=== PATIENT | female | born 1940 | race African-American/Black ===

== ENCOUNTER → 2017-08-31 | Outpatient (CLI) | payer MEDICARE | LOC: BICRAD 15:19 | PROVIDERS: ATTEND Internal Medicine | DX: R05 Cough (principal) | CPT/HCPCS: 71046 ==

== ENCOUNTER 2018-06-15 13:38 | Outpatient (CLI) | payer MEDICARE | END 2018-06-15 13:39 | disposition home or self-care (01) | LOC: BICMAMMO 13:38 | PROVIDERS: ATTEND Internal Medicine | DX: Z12.31 Encounter for screening mammogram for malignant neoplasm of breast (principal) | CPT/HCPCS: 77063; 77067 ==

== ENCOUNTER 2018-06-21 13:02 | Outpatient (CLI) | payer MEDICARE ==
--- NOTE | 2018-06-21 16:34 | ULT ---
RENAL ULTRASOUND: Date: 06-21-18 Comparison: 05-12-16 History: Angiomyolipoma, renal cysts. Technique: Multiplanar grayscale sonographic imaging of the kidneys and urinary bladder obtained. FINDINGS: Right kidney measures 11.2 x 4.1 x 4.6 cm. Left kidney measures 9.2 x 4.6 x 4.5 cm. There are two hypoechoic lesions in the lower pole of the right kidney suggesting cysts measuring 1.2 and 1.1 cm respectively. No solid renal mass, hydronephrosis, or stone is apparent on the right. Doris ging of the urinary bladder appears grossly unremarkable. There is a probable small cyst associated with the posterior aspect of the midpole of the right kidne y measuring in the 7-[address] examination performed 05-10-17 demonstrated a fat containing lesion posterior to the midpole left kidney, not appreciated on this examination, likely secondary to technique. This finding would b e best assessed via follow up CT exam. IMPRESSION: Small bilateral renal cysts. Please see above discussion. POS: PADMINI
== END 2018-06-21 13:03 | disposition home or self-care (01) ==
LOC: BICULT 13:02
PROVIDERS: ATTEND Urology
DX: D17.71 Benign lipomatous neoplasm of kidney (principal); Q61.3 Polycystic kidney, unspecified; N28.1 Cyst of kidney, acquired; N28.9 Disorder of kidney and ureter, unspecified
CPT/HCPCS: 36415; 76770; 80048; 81003; 87086

== ENCOUNTER 2019-06-17 15:16 | Outpatient (CLI) | payer MEDICARE ==
--- NOTE | 2019-06-17 15:39 | MMO ---
Bilateral MAMMO Bilat Screen [facility]. CLINICAL HISTORY: Patient is 79 years old and is seen for screening. The patient has no family history of breast cancer. The patient has no personal history of cancer. VIEWS: The views performed were: bilateral craniocaudal with tomosynthesis and bilateral mediolateral oblique with tomosynthesis. FILMS COMPARED: The present examination has been compared to prior imaging studies performed at [facility] on 04/24/2015, 04/26/2016, 06/12/2017 and 06/15/2018. This study has been interpreted with the assistance of computer-aided detection. MAMMOGRAM FINDINGS: There are scattered fibroglandular densities. There are stable benign appearing calcifications seen in both breasts. There are no suspicious masses, suspicious calcifications, or new areas of architectural distortion. IMPRESSION: THERE IS NO MAMMOGRAPHIC EVIDENCE OF MALIGNANCY. A ROUTINE FOLLOW-UP MAMMOGRAM IN 1 YEAR IS RECOMMENDED. THE RESULTS OF THIS EXAM WERE SENT TO THE PATIENT. ACR BI-RADS Category 2 - Benign finding MAMMOGRAPHY NOTE: 1. A negative mammogram report should not delay a biopsy if a dominant of clinically suspicious mass is present. 2. Approximately 10% to 15% of breast cancers are not detected by mammography. 3. Adenosis and dense breasts may obscure an underlying neoplasm. Reported by: KALPESH HAGAN MD Electonically Signed: [id number]
== END 2019-06-17 15:17 | disposition home or self-care (01) ==
LOC: BICMAMMO 15:16
PROVIDERS: ATTEND Internal Medicine
DX: Z12.31 Encounter for screening mammogram for malignant neoplasm of breast (principal)
CPT/HCPCS: 77063; 77067

== ENCOUNTER 2019-08-05 14:21 | Emergency (ER) | payer MEDICARE ==
[2019-08-05 15:44] LABS: Anion Gap 12 mmol/L (10-20); BUN (Urea Nitrogen) 15 mg/dL (9.8-20.1); Calc. Creatinine Clearance 0 mL/min (70-130); Calcium 10.4 mg/dL (7.8-10.44); Carbon Dioxide 29 mmol/L (23-31); Chloride 102 mmol/L (98-107); Estimated GFR-MDRD 42; Glucose 117 mg/dL (83-110); Sodium 139 mmol/L (136-145)
[2019-08-05 16:06] LABS: Eosinophils 8 % (0-10); Hemoglobin 12.5 g/dL (12.0-16.0); Lymphocytes 31 % (21-51); MDiff Complete? YES; Mean Corpuscular HGB CONC 33.7 g/dL (32.0-36.0); Mean Platelet Volume 7.4 fL (7.4-10.4); Monocytes 10 % (0-10); Neutrophil 47 % (42-75); Platelet Count 228 thou/uL (130-400); Platelet Morphology Comment Appears Adequate; Polychromasia SLIGHT = 2-3 cells (100X) (0-2/hpf); Reactive Lymphocytes 3 % (0-10); Red Blood Cell (RBC) Count 4.15 mill/uL (4.20-5.40); White Blood Cell (WBC) Count 7.6 thou/uL (4.8-10.8)
--- NOTE | 2019-08-17 16:10 | EKG ---
Test Reason : Blood Pressure : / mmHG Vent. Rate : 064 BPM Atrial Rate : 064 BPM P-R Int : 156 ms QRS Dur : 092 ms QT Int : 412 ms P-R-T Axes : 057 050 068 degrees QTc Int : 425 ms Normal sinus rhythm Left atrial enlargement Borderline ECG Confirmed by ILIANA OLIVAS, BERNARDO Harkins ([id number]), greeting card editor TONY VOSS ([id number]) on 08/17/2019 4:10:00 PM Referred By: Confirmed By:BERNARDO BARRIENTOS MD
== END 2019-08-05 16:29 | disposition home or self-care (01) ==
LOC: ERS 14:21
DX: T50.3X1A Poisoning by electrolytic, caloric and water-balance agents, accidental (unintentional), initial encounter (principal); I25.10 Atherosclerotic heart disease of native coronary artery without angina pectoris; M19.90 Unspecified osteoarthritis, unspecified site; J44.9 Chronic obstructive pulmonary disease, unspecified; E11.9 Type 2 diabetes mellitus without complications; E78.5 Hyperlipidemia, unspecified; E78.00 Pure hypercholesterolemia, unspecified; F17.210 Nicotine dependence, cigarettes, uncomplicated; I10 Essential (primary) hypertension
CPT/HCPCS: 36415; 80048; 85025; 93005

== ENCOUNTER 2020-02-19 13:34 | Outpatient (CLI) | payer MEDICARE ==
--- NOTE | 2020-02-19 14:07 | RAD ---
XR Chest Pa Lat STANDARD HISTORY: Dyspnea COMPARISON: 01/14/2016, 08/31/2017 FINDINGS: The heart size is normal. The lungs are well expanded without focal areas of consolidation, pneumothorax or pleural effusions. The small nodule in the right lower lung likely granuloma is stable. IMPRESSION: No radiographic evidence of acute cardiopulmonary process.
== END 2020-02-19 13:35 | disposition home or self-care (01) ==
LOC: BICRAD 13:34
PROVIDERS: ATTEND Internal Medicine Pulmonary Disease
DX: R06.00 Dyspnea, unspecified (principal)
CPT/HCPCS: 71046

== ENCOUNTER 2020-03-27 10:31 | Outpatient (CLI) | payer MEDICARE ==
[2020-03-27] MEDS ORDERED: Magnevist 469MG/ML 20 ML VIAL ONE (11:44)
--- NOTE | 2020-03-27 12:37 | MRI ---
MRI BRAIN WITH AND WITHOUT IV CONTRAST: Date: 03/27/2020 HISTORY: Tic disorder. Complains of involuntary mouth noises for 5-6 months. FINDINGS: No restricted diffusion is seen. There are foci of T2 prolongation in the periventricular white matte r consistent with mild chronic small vessel ischemic disease. The ventricular size is appropriate and the basilar cisterns are patent. No evidence of infarct, hemorrhage, mass, midline shift, or abnorma l extra-axial fluid collections are seen. No abnormal postcontrast enhancement is noted. The visualiz ed paranasal sinuses and mastoid air cells are well aerated. IMPRESSION: No evidence of acute intracranial process or mass. POS: MZA
== END 2020-03-27 10:32 | disposition home or self-care (01) ==
LOC: BICMRI 10:31
PROVIDERS: ATTEND Psychiatry & Neurology Neurology
DX: F95.9 Tic disorder, unspecified (principal)
CPT/HCPCS: 70553; 82565

== ENCOUNTER 2020-06-23 11:59 | Outpatient (CLI) | payer MEDICARE ==
--- NOTE | 2020-06-23 15:10 | MMO ---
Bilateral MAMMO Bilat Screen [facility]. CLINICAL HISTORY: Patient is 80 years old and is seen for screening. The patient has no family history of breast cancer. The patient has no personal history of cancer. VIEWS: The views performed were: bilateral craniocaudal with tomosynthesis and bilateral mediolateral oblique with tomosynthesis. FILMS COMPARED: The present examination has been compared to prior imaging studies performed at [facility] on 04/26/2016, 06/12/2017, 06/15/2018 and 06/17/2019. This study has been interpreted with the assistance of computer-aided detection. MAMMOGRAM FINDINGS: There are scattered fibroglandular densities. There are stable nodules seen in the sub-areolar region of both breasts. There are no suspicious masses, suspicious calcifications, or new areas of architectural distortion. IMPRESSION: THERE IS NO MAMMOGRAPHIC EVIDENCE OF MALIGNANCY. A ROUTINE FOLLOW-UP MAMMOGRAM IN 1 YEAR IS RECOMMENDED. THE RESULTS OF THIS EXAM WERE SENT TO THE PATIENT. ACR BI-RADS Category 2 - Benign finding MAMMOGRAPHY NOTE: 1. A negative mammogram report should not delay a biopsy if a dominant of clinically suspicious mass is present. 2. Approximately 10% to 15% of breast cancers are not detected by mammography. 3. Adenosis and dense breasts may obscure an underlying neoplasm. Reported by: APRYL ROMO MD Electonically Signed: [id number]
== END 2020-06-23 12:00 | disposition home or self-care (01) ==
LOC: BICMAMMO 11:59
PROVIDERS: ATTEND Internal Medicine
DX: Z12.31 Encounter for screening mammogram for malignant neoplasm of breast (principal)
CPT/HCPCS: 77063; 77067

== ENCOUNTER 2021-07-16 12:43 | Outpatient (CLI) | payer MEDICARE | END 2021-07-16 12:44 | disposition home or self-care (01) | LOC: BICMAMMO 12:43 | PROVIDERS: ATTEND Internal Medicine | DX: Z12.31 Encounter for screening mammogram for malignant neoplasm of breast (principal) | CPT/HCPCS: 77063; 77067 ==

== ENCOUNTER 2021-09-28 08:35 | Inpatient (IN) | payer MEDICARE, OTHER ==
[2021-09-28] MEDS ORDERED: Azithromycin 500 MG VIAL ONE (09:09)
[2021-09-28] MEDS ORDERED: cefTRIAXone\\ROCEPHIN 2 GM VIAL ONE (09:09)
[2021-09-28 09:10] LABS: #Eosinphils 0.1 thou/uL (0.0-0.7); #Lymphocytes 1.2 thou/uL (1.20-3.40); #Monocytes 0.9 thou/uL (0.11-0.59); #Neutrophils 8.3 thou/uL (1.40-6.50); %Basophils 0.2 % (0.0-1.0); %Eosinophils 0.5 % (0.0-10.0); %Lymphocytes 11.5 % (21.0-51.0); %Monocytes 8.6 % (0.0-10.0); %Neutrophils 79.2 % (42.0-75.0); Mean Corpuscular Hemoglobin 27.9 pg (27.0-31.0); Mean Corpuscular Volume 87.3 fL (78.0-98.0); Mean Platelet Volume 7.2 fL (7.4-10.4); Platelet Count 230 thou/uL (130-400); Red Blood Cell (RBC) Count 3.95 mill/uL (4.20-5.40); White Blood Cell (WBC) Count 10.5 thou/uL (4.8-10.8)
[2021-09-28 09:20] LABS: INR-International Normal Ratio 1.1; PTT 38.5 sec (22.9-36.1); Prothrombin Time 14.1 sec (12.0-14.7)
[2021-09-28 09:24] LABS: ALT (SGPT) 23 U/L (8-55); AST (SGOT) 29 U/L (5-34); Alkaline Phosphatase 94 U/L (40-110); Anion Gap 13 mmol/L (10-20); BUN (Urea Nitrogen) 23 mg/dL (9.8-20.1); Bilirubin, Total 0.3 mg/dL (0.2-1.2); Calc. Creatinine Clearance 0 mL/min (70-130); Calcium 9.4 mg/dL (7.8-10.44); Carbon Dioxide 26 mmol/L (23-31); Chloride 102 mmol/L (98-107); Globulin 3.7 g/dL (2.4-3.5); Glucose 160 mg/dL (83-110); Potassium 4.4 mmol/L (3.5-5.1); Protein, Total 7.7 g/dL (5.8-8.1); Sodium 137 mmol/L (136-145)
[2021-09-28] MEDS ORDERED: Magnesium 2 GM/50 ML BAG (IN WATER) ONE (10:46)
[2021-09-28] MEDS ORDERED: predniSONE 20 MG TAB ONE (10:47)
[2021-09-28] MEDS ORDERED: Albuterol 200 PUFF (6.7GM INHALER) ONE (10:54)
[2021-09-28 11:49] LABS: SARS-CoV-2 NAA Rapid Test Not Detected (NotDetected)
[2021-09-28 11:59] LABS: Bacteria/HPF 4+ HPF (None Seen); Bilirubin Negative (Negative); Blood, Urine Trace (Negative); Clarity Clear (Clear); Glucose, Urine (Dipstick) Normal (Negative); Ketone, Urine Negative (Negative); Leukocyte Negative Leu/uL (Negative); Nitrite Negative (Negative); Protein, Urine (Dipstick) 70 mg/dL (Neg-Trace); RBC/HPF 0-3 HPF (0-3); Specific Gravity, Urine 1.019 (1.002-1.036); Urobilinogen Normal mg/dL (Less than 2); WBC/HPF 0-3 HPF (0-3)
[2021-09-28] MEDS ORDERED: Oseltamivir 75 MG CAP PO SCH ×2 (13:30→21:00)
[2021-09-28] MEDS ORDERED: Dextrose 5% in Water 1,000 ML IV PRN (14:05)
[2021-09-28] MEDS ORDERED: Dextrose 50% Abboject 50 ML SYRINGE SLOW IVP PRN (14:05)
[2021-09-28] MEDS ORDERED: Nicotine 14 MG PATCH TD PRN (14:06)
[2021-09-28] MEDS ORDERED: Guaifenesin DM 100-10/5 ML UDCUP PO PRN (14:06)
[2021-09-28] MEDS ORDERED: Ondansetron ODT 4 MG TAB PO PRN (14:06)
[2021-09-28] MEDS ORDERED: Acetaminophen 325 MG TAB PO PRN (14:06)
[2021-09-28] MEDS ORDERED: Docusate 100 MG CAP PO PRN (14:08)
[2021-09-28] MEDS ORDERED: hydrALAZINE 20 MG/ML VIAL SLOW IVP PRN (14:08)
[2021-09-28] MEDS ORDERED: traMADol HCl 50 MG TAB PO PRN (14:15)
[2021-09-28] MEDS ORDERED: Electrolyte Replacement Protocol 1 EACH FS SCH (14:15)
[2021-09-28] MEDS ORDERED: Electrolyte Replacement Protocol FS PRN (14:45)
[2021-09-28] MEDS ORDERED: Albuterol Sulfate 2.5 mg/3 ml Neb NEB PRN (14:51)
[2021-09-28] MEDS ORDERED: cloNIDine 0.1mg/24 Hour PATCH TD SCH (15:15)
[2021-09-28] MEDS: Gabapentin 300 MG CAP PO SCH ×2 (17:01→20:57)
[2021-09-28] MEDS: Heparin 5,000 UNITS/ML VIAL SC SCH ×2 (17:02→20:58)
[2021-09-28 17:11] VITALS: BMI 37.0
[2021-09-28] MEDS ORDERED: Atorvastatin Calcium 40 MG TAB PO SCH (21:00)
[2021-09-29 06:46] LABS: #Lymphocytes 1.9 thou/uL (1.20-3.40); #Monocytes 1.3 thou/uL (0.11-0.59); #Neutrophils 7.6 thou/uL (1.40-6.50); %Basophils 0.1 % (0.0-1.0); %Eosinophils 0.1 % (0.0-10.0); %Lymphocytes 17.9 % (21.0-51.0); %Monocytes 11.6 % (0.0-10.0); %Neutrophils 70.3 % (42.0-75.0); Mean Corpuscular HGB CONC 32.5 g/dL (32.0-36.0); Mean Corpuscular Hemoglobin 28.2 pg (27.0-31.0); Mean Corpuscular Volume 86.6 fL (78.0-98.0); Mean Platelet Volume 7.2 fL (7.4-10.4); Platelet Count 205 thou/uL (130-400); RBC Distribution Width 12.9 % (11.5-14.5); Red Blood Cell (RBC) Count 3.53 mill/uL (4.20-5.40); White Blood Cell (WBC) Count 10.8 thou/uL (4.8-10.8)
[2021-09-29 07:04] LABS: Anion Gap 15 mmol/L (10-20); BUN (Urea Nitrogen) 31 mg/dL (9.8-20.1); Calc. Creatinine Clearance 36 mL/min (70-130); Calcium 8.7 mg/dL (7.8-10.44); Carbon Dioxide 21 mmol/L (23-31); Chloride 103 mmol/L (98-107); Glucose 161 mg/dL (83-110); Magnesium 2.3 mg/dL (1.6-2.6); Potassium 4.2 mmol/L (3.5-5.1); Sodium 135 mmol/L (136-145)
[2021-09-29] MEDS ORDERED: predniSONE 20 MG TAB PO SCH (08:00)
[2021-09-29] MEDS ORDERED: Potassium Chloride 20 MEQ TAB PO SCH (08:00)
[2021-09-29] MEDS: Heparin 5,000 UNITS/ML VIAL SC SCH ×2 (08:17→16:18)
[2021-09-29] MEDS: Gabapentin 300 MG CAP PO SCH ×2 (08:17→16:17)
[2021-09-29] MEDS ORDERED: Furosemide 20 MG TAB PO SCH (09:00)
[2021-09-29] MEDS ORDERED: hydrOXYzine 25 MG TAB PO SCH (09:00)
[2021-09-29] MEDS ORDERED: cefTRIAXone\\ROCEPHIN 1 GM in Sodium Chloride 0.9% 100 ML IVPB SCH (10:00)
[2021-09-29] MEDS ORDERED: Azithromycin 500 MG in Sodium Chloride 0.9% 250 ML 250 ML IVPB SCH (12:00)
[2021-09-29 17:33] VITALS: BP 181/69; TEMP 97.8
[2021-09-29] MEDS ORDERED: Oseltamivir 6 MG/ML ORAL SUSP PO SCH (21:00)
[2021-10-05] MEDS ORDERED: cloNIDine 0.1mg/24 Hour PATCH TD SCH (09:00)
== END 2021-09-29 17:29 | disposition home or self-care (01) | DRG 871 ==
LOC: ERS 08:35 → ERHOLD 10:58 → T4-B 15:44
PROVIDERS: ADMIT Internal Medicine; ATTEND Internal Medicine
DX: A41.89 Other specified sepsis (principal); J96.21 Acute and chronic respiratory failure with hypoxia; J44.1 Chronic obstructive pulmonary disease with (acute) exacerbation; N17.9 Acute kidney failure, unspecified; J10.1 Influenza due to other identified influenza virus with other respiratory manifestations; Z20.822 Contact with and (suspected) exposure to COVID-19; M19.90 Unspecified osteoarthritis, unspecified site; I25.10 Atherosclerotic heart disease of native coronary artery without angina pectoris; I10 Essential (primary) hypertension; E78.5 Hyperlipidemia, unspecified; E11.9 Type 2 diabetes mellitus without complications; F17.210 Nicotine dependence, cigarettes, uncomplicated; Z96.41 Presence of insulin pump (external) (internal); Z96.641 Presence of right artificial hip joint; F41.9 Anxiety disorder, unspecified; F41.1 Generalized anxiety disorder; Z95.5 Presence of coronary angioplasty implant and graft; Z90.710 Acquired absence of both cervix and uterus; Z90.49 Acquired absence of other specified parts of digestive tract; Z83.3 Family history of diabetes mellitus; Z82.49 Family history of ischemic heart disease and other diseases of the circulatory system; Z79.4 Long term (current) use of insulin; Z88.8 Allergy status to other drugs, medicaments and biological substances
CPT/HCPCS: 0240U; 36415; 71045; 80048; 80053; 81003; 81015; 83605; 83735; 85025; 85610; 85730; 87040; 87086; 93005; 94664; 94760; J0456; J0696; J1644; J3475; J3490; J7050; J7512

== ENCOUNTER 2022-07-29 07:55 | Outpatient (CLI) | payer MEDICARE, OTHER | END 2022-07-29 07:56 | disposition home or self-care (01) | LOC: BICMAMMO 07:55 | PROVIDERS: ATTEND Internal Medicine | DX: Z12.31 Encounter for screening mammogram for malignant neoplasm of breast (principal) | CPT/HCPCS: 77063; 77067 ==

== ENCOUNTER 2022-11-01 09:05 | Outpatient (CLI) | payer OTHER | END 2022-11-01 09:06 | disposition home or self-care (01) | LOC: BICCT 09:05 | PROVIDERS: ATTEND Internal Medicine | DX: M53.3 Sacrococcygeal disorders, not elsewhere classified (principal); R10.32 Left lower quadrant pain; M25.559 Pain in unspecified hip; N28.9 Disorder of kidney and ureter, unspecified | CPT/HCPCS: 72170; 72220; 74176 ==

== ENCOUNTER 2023-03-23 09:09 | Outpatient (CLI) | payer OTHER | END 2023-03-23 09:10 | disposition home or self-care (01) | LOC: CT 09:09 | PROVIDERS: ATTEND Urology | DX: N18.9 Chronic kidney disease, unspecified (principal); N28.1 Cyst of kidney, acquired; D17.71 Benign lipomatous neoplasm of kidney; Z90.5 Acquired absence of kidney | CPT/HCPCS: 82565 ==

== ENCOUNTER 2023-07-28 15:40 | Inpatient (IN) | payer MEDICARE, OTHER ==
[2023-07-28 16:31] LABS: #Eosinphils 0.1 thou/uL (0.0-0.7); #Monocytes 0.7 thou/uL (0.11-0.59); #Neutrophils 7.8 thou/uL (1.40-6.50); %Basophils 0.1 % (0.0-1.0); %Eosinophils 0.7 % (0.0-10.0); %Monocytes 7.3 % (0.0-10.0); %Neutrophils 82.4 % (42.0-75.0); Hematocrit 24.5 % (36.0-47.0); Hemoglobin 7.4 g/dL (12.0-16.0); Mean Corpuscular HGB CONC 30.2 g/dL (32.0-36.0); Mean Corpuscular Hemoglobin 28.4 pg (27.0-31.0); Mean Corpuscular Volume 93.9 fl (78.0-98.0); Mean Platelet Volume 10.9 fL (7.4-10.4); Platelet Count 264 10x3/uL (130-400); RBC Distribution Width 16.9 % (11.5-14.5); Red Blood Cell (RBC) Count 2.61 mill/uL (4.20-5.40); White Blood Cell (WBC) Count 9.4 10x3/uL (4.8-10.8)
[2023-07-28] MEDS ORDERED: Furosemide 20 MG/2 ML VIAL ONE (16:44)
[2023-07-28] MEDS ORDERED: Ipratropium/Albuterol 3 ML NEB ONE (16:51)
[2023-07-28 16:55] LABS: ALT (SGPT) 14 U/L (8-55); AST (SGOT) 20 U/L (5-34); Alkaline Phosphatase 117 U/L (40-110); Anion Gap 16 mmol/L (10-20); BUN (Urea Nitrogen) 33 mg/dL (9.8-20.1); Bilirubin, Total 0.4 mg/dL (0.2-1.2); Calc. Creatinine Clearance 0 mL/min (70-130); Carbon Dioxide 24 mmol/L (23-31); Chloride 106 mmol/L (98-107); Estimated GFR 22; Globulin 2.8 g/dL (2.4-3.5); Glucose 337 mg/dL (83-110); Magnesium 1.8 mg/dL (1.6-2.6); Potassium 3.8 mmol/L (3.5-5.1); Protein, Total 6.8 g/dL (5.8-8.1); Sodium 142 mmol/L (136-145)
[2023-07-28] MEDS ORDERED: Dextrose 5% in Water 1,000 ML IV PRN (18:53)
[2023-07-28] MEDS ORDERED: Ondansetron PF 4 MG/2 ML Vial IVP PRN (18:53)
[2023-07-28] MEDS ORDERED: HumaLOG 300 UNITS/3 ML VIAL SC PRN (18:53)
[2023-07-28] MEDS ORDERED: Acetaminophen 325 MG TAB PO PRN (18:53)
[2023-07-28] MEDS ORDERED: Dextrose 50% Abboject 50 ML SYRINGE SLOW IVP PRN (18:53)
[2023-07-28] MEDS ORDERED: Glucagon 1 MG/ML KIT IM PRN (18:53)
[2023-07-28 20:17] LABS: Troponin I 0.044 ng/mL (< 0.028)
[2023-07-28 21:51] VITALS: BMI 41.5
[2023-07-28] MEDS ORDERED: hydrALAZINE 20 MG/ML VIAL SLOW IVP PRN (22:12)
[2023-07-28] MEDS ORDERED: Furosemide 20 MG/2 ML VIAL SLOW IVP SCH (22:15)
[2023-07-28] MEDS: hydrALAZINE 25 MG TAB PO SCH (22:24)
[2023-07-28] MEDS: Benzonatate 100 MG CAP PO SCH (22:24)
[2023-07-28] MEDS: Pregabalin 75 MG CAP PO SCH (22:24)
[2023-07-28] MEDS: cloNIDine 0.1 MG TAB PO SCH (22:25)
[2023-07-28] MEDS: QUEtiapine 25 MG TAB PO SCH (22:25)
[2023-07-28] MEDS: Heparin 5,000 UNITS/ML VIAL SC SCH (22:25)
[2023-07-29 02:15] LABS: Troponin I 0.048 ng/mL (< 0.028)
[2023-07-29 04:17] LABS: #Eosinphils 0.2 thou/uL (0.0-0.7); #Monocytes 0.9 thou/uL (0.11-0.59); #Neutrophils 5.9 thou/uL (1.40-6.50); %Basophils 0.3 % (0.0-1.0); %Eosinophils 2.3 % (0.0-10.0); %Lymphocytes 20.1 % (21.0-51.0); %Monocytes 10.3 % (0.0-10.0); %Neutrophils 66.4 % (42.0-75.0); Hematocrit 25.8 % (36.0-47.0); Hemoglobin 7.8 g/dL (12.0-16.0); Mean Corpuscular HGB CONC 30.2 g/dL (32.0-36.0); Mean Corpuscular Hemoglobin 27.8 pg (27.0-31.0); Mean Corpuscular Volume 91.8 fl (78.0-98.0); Mean Platelet Volume 11.2 fL (7.4-10.4); Platelet Count 228 10x3/uL (130-400); RBC Distribution Width 16.6 % (11.5-14.5); Red Blood Cell (RBC) Count 2.81 mill/uL (4.20-5.40); White Blood Cell (WBC) Count 8.8 10x3/uL (4.8-10.8)
[2023-07-29 04:56] LABS: Calcium 8.6 mg/dL (7.8-10.44); Chloride 109 mmol/L (98-107); Potassium 4.1 mmol/L (3.5-5.1); Sodium 145 mmol/L (136-145)
[2023-07-29 05:07] LABS: BUN (Urea Nitrogen) 30 mg/dL (9.8-20.1); Calc. Creatinine Clearance 36 mL/min (70-130); Carbon Dioxide 29 mmol/L (23-31); Estimated GFR 26; Glucose 143 mg/dL (83-110)
[2023-07-29 05:18] LABS: Anion Gap 11 mmol/L (10-20)
[2023-07-29] MEDS ORDERED: Furosemide 40 MG/4 ML VIAL SLOW IVP SCH (06:00)
[2023-07-29 08:22] LABS: Troponin I 0.034 ng/mL (< 0.028)
[2023-07-29] MEDS: Cholecalciferol 1,000 UNITS (25 MCG) TAB PO SCH (08:31)
[2023-07-29] MEDS: Ferrous Sulfate 325 MG TAB PO SCH (08:31)
[2023-07-29] MEDS: Benzonatate 100 MG CAP PO SCH ×3 (08:31→19:27)
[2023-07-29] MEDS: busPIRone HCl 5 MG TAB PO SCH ×2 (08:31→19:28)
[2023-07-29] MEDS: dilTIAZem CD 240 MG CAP PO SCH ×2 (08:34→10:39)
[2023-07-29] MEDS: Pregabalin 75 MG CAP PO SCH ×2 (08:34→20:44)
[2023-07-29] MEDS: cloNIDine 0.1 MG TAB PO SCH ×2 (08:36→20:44)
[2023-07-29] MEDS ORDERED: dilTIAZem CD 180 MG CAP PO SCH (09:00)
[2023-07-29] MEDS ORDERED: Losartan 25 MG TAB PO SCH ×2 (09:00)
[2023-07-29] MEDS ORDERED: Hydrochlorothiazide 25 MG TAB PO SCH (09:00)
[2023-07-29] MEDS ORDERED: Albuterol 200 PUFF (6.7GM INHALER) INH SCH (09:00)
[2023-07-29] MEDS: Atorvastatin Calcium 20 MG TAB PO SCH (10:40)
[2023-07-29] MEDS: Heparin 5,000 UNITS/ML VIAL SC SCH ×3 (10:40→20:43)
[2023-07-29] MEDS: hydrALAZINE 25 MG TAB PO SCH ×4 (12:14→20:43)
[2023-07-29] MEDS: Furosemide 40 MG/4 ML VIAL SLOW IVP SCH (12:30)
[2023-07-29] MEDS: HumaLOG 300 UNITS/3 ML VIAL SC PRN ×2 (12:30→18:39)
[2023-07-29] MEDS: QUEtiapine 25 MG TAB PO SCH (20:43)
[2023-07-30 05:24] LABS: #Eosinphils 0.3 thou/uL (0.0-0.7); #Monocytes 0.7 thou/uL (0.11-0.59); #Neutrophils 4.7 thou/uL (1.40-6.50); %Basophils 0.3 % (0.0-1.0); %Eosinophils 4.1 % (0.0-10.0); %Lymphocytes 20.3 % (21.0-51.0); %Monocytes 9.9 % (0.0-10.0); Hematocrit 25.1 % (36.0-47.0); Hemoglobin 7.8 g/dL (12.0-16.0); Mean Corpuscular HGB CONC 31.1 g/dL (32.0-36.0); Mean Corpuscular Hemoglobin 28.6 pg (27.0-31.0); Mean Corpuscular Volume 91.9 fl (78.0-98.0); Mean Platelet Volume 11.5 fL (7.4-10.4); Platelet Count 208 10x3/uL (130-400); RBC Distribution Width 17.2 % (11.5-14.5); Red Blood Cell (RBC) Count 2.73 mill/uL (4.20-5.40); White Blood Cell (WBC) Count 7.2 10x3/uL (4.8-10.8)
[2023-07-30 05:55] LABS: ALT (SGPT) 14 U/L (8-55); AST (SGOT) 17 U/L (5-34); Albumin 3.2 g/dL (3.4-4.8); Alkaline Phosphatase 103 U/L (40-110); Anion Gap 15 mmol/L (10-20); BUN (Urea Nitrogen) 32 mg/dL (9.8-20.1); Bilirubin, Direct 0.2 mg/dL (0.1-0.3); Bilirubin, Total 0.4 mg/dL (0.2-1.2); Calc. Creatinine Clearance 30 mL/min (70-130); Calcium 8.7 mg/dL (7.8-10.44); Carbon Dioxide 26 mmol/L (23-31); Chloride 106 mmol/L (98-107); Estimated GFR 22; Glucose 199 mg/dL (83-110); Magnesium 2.4 mg/dL (1.6-2.6); Potassium 4.1 mmol/L (3.5-5.1); Sodium 143 mmol/L (136-145)
[2023-07-30] MEDS: Furosemide 40 MG/4 ML VIAL SLOW IVP SCH (06:05)
[2023-07-30] MEDS: HumaLOG 300 UNITS/3 ML VIAL SC PRN ×2 (06:05→18:22)
[2023-07-30] MEDS ORDERED: Ipratropium/Albuterol 3 ML NEB NEB PRN (08:28)
[2023-07-30] MEDS: Benzonatate 100 MG CAP PO SCH ×3 (09:09→21:48)
[2023-07-30] MEDS: Atorvastatin Calcium 20 MG TAB PO SCH (09:09)
[2023-07-30] MEDS: Aspirin 81 mg Enteric Coated Tablet PO SCH (09:09)
[2023-07-30] MEDS: Cholecalciferol 1,000 UNITS (25 MCG) TAB PO SCH (09:10)
[2023-07-30] MEDS: dilTIAZem CD 240 MG CAP PO SCH (09:10)
[2023-07-30] MEDS: cloNIDine 0.1 MG TAB PO SCH ×2 (09:10→21:47)
[2023-07-30] MEDS: busPIRone HCl 5 MG TAB PO SCH ×2 (09:10→21:47)
[2023-07-30] MEDS: Heparin 5,000 UNITS/ML VIAL SC SCH ×3 (09:11→21:48)
[2023-07-30] MEDS: Pregabalin 75 MG CAP PO SCH ×2 (09:11→21:47)
[2023-07-30] MEDS: hydrALAZINE 25 MG TAB PO SCH ×3 (09:11→21:48)
[2023-07-30] MEDS ORDERED: Azithromycin 250 MG TAB PO SCH (11:00)
[2023-07-30] MEDS: Ipratropium/Albuterol 3 ML NEB NEB SCH ×4 (11:01→22:02)
[2023-07-30] MEDS: cefTRIAXone\\ROCEPHIN 1 GM in Sodium Chloride 0.9% 100 ML IVPB SCH (11:48)
[2023-07-30 11:58] LABS: Legionella Urinary Ag Negative (Negative); Strep pneumo Urine Ag NEGATIVE (NEGATIVE)
[2023-07-30 20:32] LABS: SARS-CoV-2 NAA Rapid Test Not Detected (NotDetected)
[2023-07-30] MEDS: QUEtiapine 25 MG TAB PO SCH (21:48)
[2023-07-31] MEDS: Ipratropium/Albuterol 3 ML NEB NEB SCH ×6 (02:14→22:15)
[2023-07-31 04:38] LABS: #Eosinphils 0.3 thou/uL (0.0-0.7); #Monocytes 0.8 thou/uL (0.11-0.59); %Basophils 0.3 % (0.0-1.0); %Eosinophils 3.3 % (0.0-10.0); %Lymphocytes 22.2 % (21.0-51.0); %Monocytes 10.4 % (0.0-10.0); %Neutrophils 63.3 % (42.0-75.0); Actual Bicarbonate (HCO3v) 26.9 mEq/L (22-28); Calcium, Ionized (venous) 1.08 mmol/L (1.16-1.32); Chloride (VBG) 101 mmol/L (98-106); Hematocrit 25.3 % (36.0-47.0); Hematocrit-VBG 25 % (36.0-47.0); Hemoglobin 7.6 g/dL (12.0-16.0); Hemoglobin (Hb) 8.6 g/dL (11.7-16.1); Mean Corpuscular Hemoglobin 27.2 pg (27.0-31.0); Mean Corpuscular Volume 90.7 fl (78.0-98.0); Platelet Count 238 10x3/uL (130-400); Potassium (VBG) 3.71 mmol/L (3.70-5.30); RBC Distribution Width 17.1 % (11.5-14.5); Red Blood Cell (RBC) Count 2.79 mill/uL (4.20-5.40); Sodium 139 mmol/L (133-146); White Blood Cell (WBC) Count 7.9 10x3/uL (4.8-10.8); pH (venous) 7.466 (7.32-7.43)
[2023-07-31 05:06] LABS: Anion Gap 15 mmol/L (10-20); BUN (Urea Nitrogen) 37 mg/dL (9.8-20.1); Calc. Creatinine Clearance 28 mL/min (70-130); Calcium 8.9 mg/dL (7.8-10.44); Carbon Dioxide 28 mmol/L (23-31); Chloride 102 mmol/L (98-107); Estimated GFR 21; Glucose 241 mg/dL (83-110); Magnesium 2.5 mg/dL (1.6-2.6); Potassium 3.8 mmol/L (3.5-5.1); Sodium 141 mmol/L (136-145)
[2023-07-31] MEDS ORDERED: Furosemide 40 MG/4 ML VIAL SLOW IVP SCH (09:00)
[2023-07-31] MEDS ORDERED: Azithromycin 250 MG TAB PO SCH (09:00)
[2023-07-31] MEDS: cloNIDine 0.1 MG TAB PO SCH ×2 (09:40→20:28)
[2023-07-31] MEDS: busPIRone HCl 5 MG TAB PO SCH ×2 (09:40→20:26)
[2023-07-31] MEDS: Azithromycin 250 MG TAB PO SCH (09:40)
[2023-07-31] MEDS: Aspirin 81 mg Enteric Coated Tablet PO SCH (09:40)
[2023-07-31] MEDS: Benzonatate 100 MG CAP PO SCH ×3 (09:40→20:27)
[2023-07-31] MEDS: Cholecalciferol 1,000 UNITS (25 MCG) TAB PO SCH (09:40)
[2023-07-31] MEDS: Atorvastatin Calcium 20 MG TAB PO SCH (09:40)
[2023-07-31] MEDS: hydrALAZINE 25 MG TAB PO SCH ×3 (09:41→20:27)
[2023-07-31] MEDS: Ferrous Sulfate 325 MG TAB PO SCH (09:41)
[2023-07-31] MEDS: Folic Acid 1 MG TAB PO SCH (09:41)
[2023-07-31] MEDS: Heparin 5,000 UNITS/ML VIAL SC SCH ×3 (09:41→20:25)
[2023-07-31] MEDS: dilTIAZem CD 240 MG CAP PO SCH (09:41)
[2023-07-31] MEDS: Pregabalin 75 MG CAP PO SCH ×2 (09:42→20:27)
[2023-07-31] MEDS: cefTRIAXone\\ROCEPHIN 1 GM in Sodium Chloride 0.9% 100 ML IVPB SCH (11:45)
[2023-07-31] MEDS ORDERED: predniSONE 50 MG TAB PO SCH (14:45)
[2023-07-31] MEDS: HumaLOG 300 UNITS/3 ML VIAL SC PRN (17:46)
[2023-07-31] MEDS: QUEtiapine 25 MG TAB PO SCH (20:27)
[2023-07-31] MEDS ORDERED: Insulin Glargine 30 UNITS/0.3 ML VIAL SC SCH (21:00)
[2023-08-01] MEDS: Ipratropium/Albuterol 3 ML NEB NEB SCH ×6 (02:19→22:06)
[2023-08-01 04:32] LABS: #Monocytes 0.1 thou/uL (0.11-0.59); #Neutrophils 3.9 thou/uL (1.40-6.50); %Lymphocytes 10.6 % (21.0-51.0); Hematocrit 25.1 % (36.0-47.0); Hemoglobin 7.6 g/dL (12.0-16.0); Mean Corpuscular HGB CONC 30.3 g/dL (32.0-36.0); Mean Corpuscular Hemoglobin 27.7 pg (27.0-31.0); Mean Corpuscular Volume 91.6 fl (78.0-98.0); Mean Platelet Volume 11.1 fL (7.4-10.4); Platelet Count 219 10x3/uL (130-400); RBC Distribution Width 16.4 % (11.5-14.5); Red Blood Cell (RBC) Count 2.74 mill/uL (4.20-5.40); White Blood Cell (WBC) Count 4.5 10x3/uL (4.8-10.8)
[2023-08-01 04:59] LABS: Anion Gap 15 mmol/L (10-20); BUN (Urea Nitrogen) 41 mg/dL (9.8-20.1); Calc. Creatinine Clearance 31 mL/min (70-130); Calcium 9.1 mg/dL (7.8-10.44); Carbon Dioxide 25 mmol/L (23-31); Chloride 103 mmol/L (98-107); Estimated GFR 23; Magnesium 2.7 mg/dL (1.6-2.6); Potassium 4.3 mmol/L (3.5-5.1); Sodium 139 mmol/L (136-145)
[2023-08-01 05:23] LABS: Glucose 435 mg/dL (83-110)
[2023-08-01] MEDS: HumaLOG 300 UNITS/3 ML VIAL SC PRN ×3 (05:29→17:33)
[2023-08-01] MEDS ORDERED: AFRIN NASAL MIST 15 ML BOT NS PRN (08:22)
[2023-08-01] MEDS: Azithromycin 250 MG TAB PO SCH (10:01)
[2023-08-01] MEDS: Aspirin 81 mg Enteric Coated Tablet PO SCH (10:01)
[2023-08-01] MEDS: Benzonatate 100 MG CAP PO SCH ×3 (10:01→21:11)
[2023-08-01] MEDS: predniSONE 50 MG TAB PO SCH (10:01)
[2023-08-01] MEDS: Atorvastatin Calcium 20 MG TAB PO SCH (10:01)
[2023-08-01] MEDS: busPIRone HCl 5 MG TAB PO SCH ×2 (10:02→21:14)
[2023-08-01] MEDS: cloNIDine 0.1 MG TAB PO SCH ×2 (10:03→21:11)
[2023-08-01] MEDS: Cholecalciferol 1,000 UNITS (25 MCG) TAB PO SCH (10:03)
[2023-08-01] MEDS: dilTIAZem CD 240 MG CAP PO SCH (10:03)
[2023-08-01] MEDS: hydrALAZINE 25 MG TAB PO SCH ×3 (10:04→21:12)
[2023-08-01] MEDS: Heparin 5,000 UNITS/ML VIAL SC SCH (10:04)
[2023-08-01] MEDS: Insulin Glargine 30 UNITS/0.3 ML VIAL SC SCH ×2 (10:04→21:16)
[2023-08-01] MEDS: Pregabalin 75 MG CAP PO SCH ×2 (10:05→21:10)
[2023-08-01] MEDS: cefTRIAXone\\ROCEPHIN 1 GM in Sodium Chloride 0.9% 100 ML IVPB SCH (10:05)
[2023-08-01] MEDS ORDERED: Furosemide 40 MG TAB PO SCH (11:30)
[2023-08-01] MEDS: Oxymetazoline HCl 0.05% (30 ML BOT) NS PRN (14:30)
[2023-08-01] MEDS: QUEtiapine 25 MG TAB PO SCH ×2 (21:13→21:23)
[2023-08-02] MEDS: Ipratropium/Albuterol 3 ML NEB NEB SCH ×6 (02:45→21:47)
[2023-08-02 05:19] LABS: #Monocytes 1.1 thou/uL (0.11-0.59); %Lymphocytes 11.3 % (21.0-51.0); %Monocytes 10.7 % (0.0-10.0); %Neutrophils 77.5 % (42.0-75.0); Hematocrit 22.3 % (36.0-47.0); Hemoglobin 6.9 g/dL (12.0-16.0); Mean Corpuscular HGB CONC 30.9 g/dL (32.0-36.0); Mean Corpuscular Hemoglobin 28.3 pg (27.0-31.0); Mean Corpuscular Volume 91.4 fl (78.0-98.0); Mean Platelet Volume 10.9 fL (7.4-10.4); Platelet Count 203 10x3/uL (130-400); RBC Distribution Width 16.3 % (11.5-14.5); Red Blood Cell (RBC) Count 2.44 mill/uL (4.20-5.40); White Blood Cell (WBC) Count 10.3 10x3/uL (4.8-10.8)
[2023-08-02 05:50] LABS: Anion Gap 14 mmol/L (10-20); BUN (Urea Nitrogen) 52 mg/dL (9.8-20.1); Calc. Creatinine Clearance 30 mL/min (70-130); Calcium 8.8 mg/dL (7.8-10.44); Carbon Dioxide 27 mmol/L (23-31); Chloride 103 mmol/L (98-107); Estimated GFR 22; Magnesium 2.2 mg/dL (1.6-2.6); Potassium 4.2 mmol/L (3.5-5.1); Sodium 140 mmol/L (136-145)
[2023-08-02 05:55] LABS: Glucose 411 mg/dL (83-110)
[2023-08-02] MEDS ORDERED: Insulin Regular 300 UNITS/3 ML VIAL IVP SCH (07:00)
[2023-08-02] MEDS: Ferrous Sulfate 325 MG TAB PO SCH (08:49)
[2023-08-02] MEDS: hydrALAZINE 25 MG TAB PO SCH ×3 (08:49→21:57)
[2023-08-02] MEDS: Azithromycin 250 MG TAB PO SCH (08:50)
[2023-08-02] MEDS: Furosemide 20 MG TAB PO SCH (08:51)
[2023-08-02] MEDS: Atorvastatin Calcium 20 MG TAB PO SCH (08:51)
[2023-08-02] MEDS: Pregabalin 75 MG CAP PO SCH ×2 (08:52→21:57)
[2023-08-02] MEDS: Benzonatate 100 MG CAP PO SCH ×3 (08:52→21:58)
[2023-08-02] MEDS: Cholecalciferol 1,000 UNITS (25 MCG) TAB PO SCH (08:52)
[2023-08-02] MEDS: Folic Acid 1 MG TAB PO SCH (08:52)
[2023-08-02] MEDS: dilTIAZem CD 240 MG CAP PO SCH (08:52)
[2023-08-02] MEDS: busPIRone HCl 5 MG TAB PO SCH ×2 (08:53→21:58)
[2023-08-02] MEDS: Aspirin 81 mg Enteric Coated Tablet PO SCH (08:53)
[2023-08-02] MEDS: Insulin Glargine 30 UNITS/0.3 ML VIAL SC SCH ×2 (08:55→21:56)
[2023-08-02] MEDS: cloNIDine 0.1 MG TAB PO SCH ×2 (08:55→21:58)
[2023-08-02] MEDS ORDERED: Epoetin (ESRD) 20,000 UNITS/ML MDV SC SCH (09:15)
[2023-08-02] MEDS ORDERED: Furosemide 40 MG/4 ML VIAL SLOW IVP SCH (09:15)
[2023-08-02] MEDS: predniSONE 50 MG TAB PO SCH (09:26)
[2023-08-02] MEDS: cefTRIAXone\\ROCEPHIN 1 GM in Sodium Chloride 0.9% 100 ML IVPB SCH (11:17)
[2023-08-02] MEDS ORDERED: EPOETIN ALFA-EPBX (ESRD) 10,000 UNITS/ML VIAL SC SCH (12:00)
[2023-08-02] MEDS: Oxymetazoline HCl 0.05% (30 ML BOT) NS PRN (14:35)
[2023-08-02 20:37] LABS: Mycoplasma pneumoniae IgG AB 253 U/mL (0-99); Mycoplasma pneumoniae IgM AB Less than 770 U/mL (0-769)
[2023-08-02] MEDS: QUEtiapine 25 MG TAB PO SCH (21:58)
[2023-08-03] MEDS: Ipratropium/Albuterol 3 ML NEB NEB SCH ×4 (02:26→19:30)
[2023-08-03 05:10] LABS: #Eosinphils 0.1 thou/uL (0.0-0.7); #Monocytes 0.9 thou/uL (0.11-0.59); #Neutrophils 5.8 thou/uL (1.40-6.50); %Basophils 0.1 % (0.0-1.0); %Eosinophils 1.1 % (0.0-10.0); %Monocytes 9.5 % (0.0-10.0); %Neutrophils 64.6 % (42.0-75.0); Hematocrit 25.9 % (36.0-47.0); Hemoglobin 8.1 g/dL (12.0-16.0); Mean Corpuscular HGB CONC 31.3 g/dL (32.0-36.0); Mean Corpuscular Hemoglobin 28.1 pg (27.0-31.0); Mean Corpuscular Volume 89.9 fl (78.0-98.0); Mean Platelet Volume 11.3 fL (7.4-10.4); Platelet Count 207 10x3/uL (130-400); RBC Distribution Width 15.9 % (11.5-14.5); Red Blood Cell (RBC) Count 2.88 mill/uL (4.20-5.40)
[2023-08-03 07:01] LABS: Anion Gap 17 mmol/L (10-20); BUN (Urea Nitrogen) 55 mg/dL (9.8-20.1); Calc. Creatinine Clearance 29 mL/min (70-130); Calcium 8.9 mg/dL (7.8-10.44); Carbon Dioxide 24 mmol/L (23-31); Chloride 103 mmol/L (98-107); Estimated GFR 21; Glucose 300 mg/dL (83-110); Magnesium 2.3 mg/dL (1.6-2.6); Potassium 3.6 mmol/L (3.5-5.1); Sodium 140 mmol/L (136-145)
[2023-08-03] MEDS ORDERED: Phenol 177 ML BOT PO PRN (08:39)
[2023-08-03] MEDS: Furosemide 20 MG TAB PO SCH (08:42)
[2023-08-03] MEDS: hydrALAZINE 25 MG TAB PO SCH ×3 (08:42→21:00)
[2023-08-03] MEDS: Cholecalciferol 1,000 UNITS (25 MCG) TAB PO SCH (08:42)
[2023-08-03] MEDS: Aspirin 81 mg Enteric Coated Tablet PO SCH (08:42)
[2023-08-03] MEDS: Pregabalin 75 MG CAP PO SCH ×2 (08:42→20:59)
[2023-08-03] MEDS: Benzonatate 100 MG CAP PO SCH ×3 (08:43→20:59)
[2023-08-03] MEDS: dilTIAZem CD 240 MG CAP PO SCH (08:43)
[2023-08-03] MEDS: Azithromycin 250 MG TAB PO SCH (08:43)
[2023-08-03] MEDS: cloNIDine 0.1 MG TAB PO SCH ×2 (08:43→21:00)
[2023-08-03] MEDS: Atorvastatin Calcium 20 MG TAB PO SCH (08:43)
[2023-08-03] MEDS: busPIRone HCl 5 MG TAB PO SCH ×2 (08:43→20:59)
[2023-08-03] MEDS: Insulin Glargine 30 UNITS/0.3 ML VIAL SC SCH ×2 (08:44→21:00)
[2023-08-03] MEDS ORDERED: Lidocaine 2% Viscous Solution 20 ML, Aluminum & Magnesium Hydroxide 30 ML, Donnatal Eli... SSW SCH (10:00)
[2023-08-03] MEDS: cefTRIAXone\\ROCEPHIN 1 GM in Sodium Chloride 0.9% 100 ML IVPB SCH (11:03)
[2023-08-03] MEDS ORDERED: Ipratropium/Albuterol 3 ML NEB NEB SCH (14:00)
[2023-08-03] MEDS: QUEtiapine 25 MG TAB PO SCH (21:00)
[2023-08-04 05:06] LABS: White Blood Cell (WBC) Count 7.5 10x3/uL (4.8-10.8)
[2023-08-04 05:07] LABS: #Eosinphils 0.4 thou/uL (0.0-0.7); #Monocytes 0.8 thou/uL (0.11-0.59); %Basophils 0.3 % (0.0-1.0); %Eosinophils 5.2 % (0.0-10.0); %Lymphocytes 16.9 % (21.0-51.0); %Monocytes 10.8 % (0.0-10.0); %Neutrophils 66.3 % (42.0-75.0); Hematocrit 27.7 % (36.0-47.0); Hemoglobin 8.6 g/dL (12.0-16.0); Mean Corpuscular Hemoglobin 28.1 pg (27.0-31.0); Mean Corpuscular Volume 90.5 fl (78.0-98.0); Mean Platelet Volume 11.6 fL (7.4-10.4); Platelet Count 200 10x3/uL (130-400); RBC Distribution Width 15.6 % (11.5-14.5); Red Blood Cell (RBC) Count 3.06 mill/uL (4.20-5.40)
[2023-08-04 05:40] LABS: ALT (SGPT) 25 U/L (8-55); AST (SGOT) 22 U/L (5-34); Albumin 3.5 g/dL (3.4-4.8); Alkaline Phosphatase 107 U/L (40-110); Anion Gap 15 mmol/L (10-20); BUN (Urea Nitrogen) 48 mg/dL (9.8-20.1); Bilirubin, Total 0.5 mg/dL (0.2-1.2); Calc. Creatinine Clearance 34 mL/min (70-130); Calcium 8.8 mg/dL (7.8-10.44); Carbon Dioxide 27 mmol/L (23-31); Chloride 101 mmol/L (98-107); Estimated GFR 24; Globulin 2.7 g/dL (2.4-3.5); Glucose 200 mg/dL (83-110); Potassium 4.2 mmol/L (3.5-5.1); Protein, Total 6.2 g/dL (5.8-8.1); Sodium 139 mmol/L (136-145)
[2023-08-04] MEDS: Ipratropium/Albuterol 3 ML NEB NEB SCH ×3 (07:03→19:25)
[2023-08-04] MEDS: Aspirin 81 mg Enteric Coated Tablet PO SCH (08:32)
[2023-08-04] MEDS: busPIRone HCl 5 MG TAB PO SCH ×2 (08:32→20:36)
[2023-08-04] MEDS: Atorvastatin Calcium 20 MG TAB PO SCH (08:32)
[2023-08-04] MEDS: Benzonatate 100 MG CAP PO SCH ×3 (08:32→20:37)
[2023-08-04] MEDS: dilTIAZem CD 240 MG CAP PO SCH (08:33)
[2023-08-04] MEDS: cloNIDine 0.1 MG TAB PO SCH ×2 (08:33→20:30)
[2023-08-04] MEDS: Folic Acid 1 MG TAB PO SCH (08:34)
[2023-08-04] MEDS: Insulin Glargine 30 UNITS/0.3 ML VIAL SC SCH ×2 (08:34→20:35)
[2023-08-04] MEDS: Ferrous Sulfate 325 MG TAB PO SCH (08:34)
[2023-08-04] MEDS: Furosemide 20 MG TAB PO SCH (08:34)
[2023-08-04] MEDS: hydrALAZINE 25 MG TAB PO SCH ×3 (08:34→20:36)
[2023-08-04] MEDS: Pregabalin 75 MG CAP PO SCH ×2 (08:35→20:36)
[2023-08-04] MEDS: Cholecalciferol 1,000 UNITS (25 MCG) TAB PO SCH (08:36)
[2023-08-04] MEDS: Furosemide 20 MG/2 ML VIAL SLOW IVP SCH (13:21)
[2023-08-04] MEDS: QUEtiapine 25 MG TAB PO SCH (20:37)
[2023-08-05 03:46] LABS: #Eosinphils 0.4 thou/uL (0.0-0.7); #Monocytes 0.7 thou/uL (0.11-0.59); #Neutrophils 4.5 thou/uL (1.40-6.50); %Basophils 0.1 % (0.0-1.0); %Eosinophils 5.8 % (0.0-10.0); %Lymphocytes 15.5 % (21.0-51.0); %Monocytes 10.7 % (0.0-10.0); %Neutrophils 67.5 % (42.0-75.0); Hemoglobin 8.4 g/dL (12.0-16.0); Mean Corpuscular HGB CONC 31.1 g/dL (32.0-36.0); Mean Corpuscular Hemoglobin 28.1 pg (27.0-31.0); Mean Corpuscular Volume 90.3 fl (78.0-98.0); Platelet Count 200 10x3/uL (130-400); RBC Distribution Width 15.5 % (11.5-14.5); Red Blood Cell (RBC) Count 2.99 mill/uL (4.20-5.40); White Blood Cell (WBC) Count 6.7 10x3/uL (4.8-10.8)
[2023-08-05 03:55] LABS: Hemoglobin A1c 6.6 % (4.0-6.0)
[2023-08-05 04:14] LABS: Anion Gap 11 mmol/L (10-20); BUN (Urea Nitrogen) 41 mg/dL (9.8-20.1); Calc. Creatinine Clearance 37 mL/min (70-130); Carbon Dioxide 32 mmol/L (23-31); Chloride 102 mmol/L (98-107); Estimated GFR 27; Glucose 231 mg/dL (83-110); Potassium 3.8 mmol/L (3.5-5.1); Sodium 141 mmol/L (136-145)
[2023-08-05] MEDS: Furosemide 20 MG/2 ML VIAL SLOW IVP SCH (06:20)
[2023-08-05] MEDS: Ipratropium/Albuterol 3 ML NEB NEB SCH (07:20)
[2023-08-05 08:27] VITALS: BP 171/75; TEMP 97.9
[2023-08-05] MEDS: dilTIAZem CD 240 MG CAP PO SCH (09:36)
[2023-08-05] MEDS: Benzonatate 100 MG CAP PO SCH (09:37)
[2023-08-05] MEDS: busPIRone HCl 5 MG TAB PO SCH (09:37)
[2023-08-05] MEDS: hydrALAZINE 25 MG TAB PO SCH (09:38)
[2023-08-05] MEDS: Pregabalin 75 MG CAP PO SCH (09:39)
[2023-08-05] MEDS: Aspirin 81 mg Enteric Coated Tablet PO SCH (09:39)
[2023-08-05] MEDS: Atorvastatin Calcium 20 MG TAB PO SCH (09:40)
[2023-08-05] MEDS: cloNIDine 0.1 MG TAB PO SCH (09:40)
[2023-08-05] MEDS: Cholecalciferol 1,000 UNITS (25 MCG) TAB PO SCH (09:41)
[2023-08-05] MEDS: Insulin Glargine 30 UNITS/0.3 ML VIAL SC SCH (09:41)
[2023-08-05] MEDS ORDERED: cloNIDine 0.2 MG TAB PO SCH (21:00)
== END 2023-08-05 13:49 | disposition home or self-care (01) | DRG 291 ==
LOC: ERS 15:40 → 2SW 18:59 → OBSVTOIN 07-30 10:58 → MSONC 08-04 11:31
PROVIDERS: ADMIT Internal Medicine; ATTEND Internal Medicine Critical Care Medicine
PROC: 30233N1 Transfusion of Nonautologous Red Blood Cells into Peripheral Vein, Percutaneous Approach (ICD-10-PCS; principal; 2023-07-30)
PROC: 4A043R1 Measurement of Venous Saturation, Peripheral, Percutaneous Approach (ICD-10-PCS; 2023-07-31)
DX: I13.0 Hypertensive heart and chronic kidney disease with heart failure and stage 1 through stage 4 chronic kidney disease, or unspecified chronic kidney disease (principal); I50.33 Acute on chronic diastolic (congestive) heart failure; J96.21 Acute and chronic respiratory failure with hypoxia; N18.4 Chronic kidney disease, stage 4 (severe); J44.1 Chronic obstructive pulmonary disease with (acute) exacerbation; Z83.3 Family history of diabetes mellitus; Z79.4 Long term (current) use of insulin; I16.0 Hypertensive urgency; D63.1 Anemia in chronic kidney disease; E11.22 Type 2 diabetes mellitus with diabetic chronic kidney disease; E78.5 Hyperlipidemia, unspecified; J44.9 Chronic obstructive pulmonary disease, unspecified; Z88.8 Allergy status to other drugs, medicaments and biological substances; Z79.899 Other long term (current) drug therapy; I25.10 Atherosclerotic heart disease of native coronary artery without angina pectoris; F41.9 Anxiety disorder, unspecified; F17.210 Nicotine dependence, cigarettes, uncomplicated; R04.0 Epistaxis; F39 Unspecified mood [affective] disorder; Z11.52 Encounter for screening for COVID-19
CPT/HCPCS: 36415; 36416; 36430; 71045; 71250; 76770; 80048; 80053; 80076; 82805; 83036; 83605; 83735; 83880; 84443; 84484; 85025; 86850; 86900; 86901; 87040; 87070; 87081; 87205; 87449; 87899; 93005; 93010; 93306; 93970; 94640; 96372; 96374; 96376; 97139; G0378; J0696; J1644; J1815; J1940; J3490; J7512; J7620; P9016; Q5105

== ENCOUNTER 2023-10-25 10:58 | Outpatient (CLI) | payer OTHER | END 2023-10-25 10:59 | disposition home or self-care (01) | LOC: BICMAMMO 10:58 | PROVIDERS: ATTEND Internal Medicine | DX: Z12.31 Encounter for screening mammogram for malignant neoplasm of breast (principal) | CPT/HCPCS: 77063; 77067 ==

== ENCOUNTER 2024-01-02 11:45 | Outpatient (CLI) | payer OTHER | END 2024-01-02 11:46 | disposition home or self-care (01) | LOC: BICRAD 11:45 | PROVIDERS: ATTEND Internal Medicine | DX: R10.84 Generalized abdominal pain (principal); J81.1 Chronic pulmonary edema; I51.7 Cardiomegaly; Z91.81 History of falling | CPT/HCPCS: 71110; 74019 ==

== ENCOUNTER 2024-03-26 14:13 | Outpatient (CLI) | payer OTHER | END 2024-03-26 14:14 | disposition home or self-care (01) | LOC: BICMAMMO 14:13 | PROVIDERS: ATTEND Internal Medicine | DX: Z13.820 Encounter for screening for osteoporosis (principal); M85.89 Other specified disorders of bone density and structure, multiple sites; Z78.0 Asymptomatic menopausal state | CPT/HCPCS: 77080 ==

== ENCOUNTER 2024-04-25 14:19 | Outpatient (CLI) | payer OTHER | END 2024-04-25 14:20 | disposition home or self-care (01) | LOC: RAD 14:19 | PROVIDERS: ATTEND Internal Medicine Critical Care Medicine | DX: R06.00 Dyspnea, unspecified (principal) | CPT/HCPCS: 71046 ==

== ENCOUNTER 2024-06-29 11:22 | Inpatient (IN) | payer OTHER ==
[2024-06-29 12:43] LABS: #Basophils Less than 0.03 10x3/uL (0.0-0.2); %Basophils 0.2 % (0.0-1.0); %Eosinophils 0.3 % (0.0-10.0); %Lymphocytes 12.5 % (21.0-51.0); %Monocytes 5.6 % (0.0-10.0); %Neutrophils 81.2 % (42.0-75.0); Hematocrit 38.4 % (36.0-47.0); Hemoglobin 12.3 g/dL (12.0-16.0); Mean Corpuscular Hemoglobin 26.8 pg (27.0-31.0); Mean Corpuscular Volume 83.7 fL (78.0-98.0); Mean Platelet Volume 10.2 fL (7.4-10.4); Platelet Count 284 10x3/uL (130-400); RBC Distribution Width 15.1 % (11.5-14.5); Red Blood Cell (RBC) Count 4.59 mill/uL (4.20-5.40)
[2024-06-29 13:09] LABS: ALT (SGPT) 16 U/L (8-55); AST (SGOT) 26 U/L (5-34); Albumin 4.1 g/dL (3.4-4.8); Alkaline Phosphatase 170 U/L (40-110); Anion Gap 23 mmol/L (10-20); BUN (Urea Nitrogen) 57 mg/dL (9.8-20.1); Bilirubin, Total 0.6 mg/dL (0.2-1.2); Calc. Creatinine Clearance 0 mL/min (70-130); Calcium 10.5 mg/dL (7.8-10.44); Carbon Dioxide 24 mmol/L (23-31); Chloride 97 mmol/L (98-107); Estimated GFR 15; Globulin 4.5 g/dL (2.4-3.5); Glucose 209 mg/dL (83-110); Magnesium 1.9 mg/dL (1.6-2.6); Potassium 3.2 mmol/L (3.5-5.1); Protein, Total 8.6 g/dL (5.8-8.1); Sodium 141 mmol/L (136-145)
[2024-06-29 13:11] LABS: Troponin I 0.064 ng/mL (< 0.028)
[2024-06-29] MEDS ORDERED: Labetalol HCl 100 MG/20 ML VIAL ONE (13:49)
[2024-06-29] MEDS ORDERED: Aspirin Chewable 81 MG TAB ONE (13:49)
[2024-06-29] MEDS ORDERED: Senokot S 8.6-50 MG TAB PO PRN (14:38)
[2024-06-29] MEDS ORDERED: niCARdipine 25 MG/10 ML SDV ONE (15:33)
[2024-06-29] MEDS ORDERED: Ipratropium/Albuterol 3 ML NEB NEB PRN (17:24)
[2024-06-29] MEDS: busPIRone HCl 5 MG TAB PO SCH (17:28)
[2024-06-29 18:15] VITALS: BMI 38.9
[2024-06-29 18:15] LABS: Troponin I 0.076 ng/mL (< 0.028)
[2024-06-29 20:34] LABS: Troponin I 0.087 ng/mL (< 0.028)
[2024-06-29 21:13] LABS: Anion Gap 20 mmol/L (10-20); BUN (Urea Nitrogen) 57 mg/dL (9.8-20.1); Calc. Creatinine Clearance 22 mL/min (70-130); Calcium 9.8 mg/dL (7.8-10.44); Carbon Dioxide 25 mmol/L (23-31); Chloride 101 mmol/L (98-107); Estimated GFR 17; Glucose 126 mg/dL (83-110); Sodium 143 mmol/L (136-145)
[2024-06-29] MEDS: Famotidine/PF 20 mg/2ml Vial SLOW IVP SCH (21:37)
[2024-06-29] MEDS: QUEtiapine 25 MG TAB PO SCH (21:38)
[2024-06-29] MEDS: Heparin 5,000 UNITS/ML VIAL SC SCH (21:38)
[2024-06-29] MEDS: niCARdipine 25 MG in Sodium Chloride 0.9% 250 ML 250 ML IVPB SCH (22:30)
[2024-06-29] MEDS: Potassium Chloride 20 MEQ TAB PO SCH (22:49)
[2024-06-29] MEDS: Acetaminophen 325 MG TAB PO PRN (22:58)
[2024-06-30 05:42] LABS: #Basophils 0.03 10x3/uL (0.0-0.2); %Basophils 0.3 % (0.0-1.0); %Lymphocytes 17.9 % (21.0-51.0); %Monocytes 9.7 % (0.0-10.0); %Neutrophils 68.8 % (42.0-75.0); Hematocrit 32.5 % (36.0-47.0); Hemoglobin 10.3 g/dL (12.0-16.0); Mean Corpuscular HGB CONC 31.7 g/dL (32.0-36.0); Mean Corpuscular Hemoglobin 26.7 pg (27.0-31.0); Mean Corpuscular Volume 84.2 fL (78.0-98.0); Platelet Count 251 10x3/uL (130-400); RBC Distribution Width 15.2 % (11.5-14.5); Red Blood Cell (RBC) Count 3.86 mill/uL (4.20-5.40)
[2024-06-30 06:59] LABS: Anion Gap 20 mmol/L (10-20); BUN (Urea Nitrogen) 57 mg/dL (9.8-20.1); Calc. Creatinine Clearance 24 mL/min (70-130); Carbon Dioxide 22 mmol/L (23-31); Chloride 103 mmol/L (98-107); Estimated GFR 18; Glucose 198 mg/dL (83-110); Potassium 3.1 mmol/L (3.5-5.1); Sodium 142 mmol/L (136-145)
[2024-06-30] MEDS ORDERED: Glucagon 1 MG/ML KIT IM PRN (09:36)
[2024-06-30] MEDS ORDERED: Dextrose 5% in Water 1,000 ML IV PRN (09:36)
[2024-06-30] MEDS ORDERED: Dextrose 50% Abboject 50 ML SYRINGE SLOW IVP PRN (09:36)
[2024-06-30] MEDS: busPIRone HCl 5 MG TAB PO SCH ×3 (10:18→20:17)
[2024-06-30] MEDS: Potassium Chloride 20 MEQ TAB PO SCH (10:19)
[2024-06-30] MEDS: Ipratropium/Albuterol 3 ML NEB NEB SCH (10:55)
[2024-06-30] MEDS: Insulin Lispro 100 UNIT/ML 10 ML VIAL SC PRN (11:51)
[2024-06-30] MEDS ORDERED: Albuterol 1.25 MG (3 mL) NEB NEB PRN (15:21)
[2024-06-30] MEDS: ALPRAZolam 0.25 MG TAB PO PRN (16:28)
[2024-06-30] MEDS: Pregabalin 75 MG CAP PO SCH ×2 (19:22→20:17)
[2024-06-30] MEDS: hydrALAZINE 25 MG TAB PO SCH ×2 (19:23→20:17)
[2024-06-30] MEDS: Ondansetron PF 4 MG/2 ML Vial IVP PRN (19:39)
[2024-06-30] MEDS: ALPRAZolam 0.25 MG TAB PO SCH (20:16)
[2024-06-30] MEDS: QUEtiapine 25 MG TAB PO SCH (20:16)
[2024-06-30] MEDS: Promethazine HCl 12.5 MG in Sodium Chloride 0.9% 50 ML IVPB PRN (23:46)
[2024-06-30] MEDS: niCARdipine 50 MG, Admixture Fee 1 EACH in Sodium Chloride 0.9% 250 ML 230 ML IV SCH (23:46)
[2024-07-01 05:10] LABS: #Basophils Less than 0.03 10x3/uL (0.0-0.2); #Eosinophils Less than 0.03 10x3/uL (0.0-0.7); %Basophils 0.1 % (0.0-1.0); %Lymphocytes 4.9 % (21.0-51.0); %Monocytes 3.5 % (0.0-10.0); Mean Corpuscular HGB CONC 32.3 g/dL (32.0-36.0); Mean Corpuscular Hemoglobin 26.9 pg (27.0-31.0); Mean Corpuscular Volume 83.3 fL (78.0-98.0); Mean Platelet Volume 10.9 fL (7.4-10.4); Platelet Count 256 10x3/uL (130-400); RBC Distribution Width 15.2 % (11.5-14.5); Red Blood Cell (RBC) Count 3.72 mill/uL (4.20-5.40)
[2024-07-01 05:21] LABS: Anion Gap 16 mmol/L (10-20); BUN (Urea Nitrogen) 56 mg/dL (9.8-20.1); Calc. Creatinine Clearance 25 mL/min (70-130); Calcium 9.2 mg/dL (7.8-10.44); Carbon Dioxide 21 mmol/L (23-31); Chloride 105 mmol/L (98-107); Estimated GFR 19; Glucose 295 mg/dL (83-110); Potassium 3.3 mmol/L (3.5-5.1); Sodium 139 mmol/L (136-145)
[2024-07-01] MEDS: Atorvastatin Calcium 40 MG TAB PO SCH (08:07)
[2024-07-01] MEDS: Ferrous Sulfate 325 MG TAB PO SCH (08:07)
[2024-07-01] MEDS: Furosemide 40 MG TAB PO SCH (08:08)
[2024-07-01] MEDS: Cholecalciferol 1,000 UNITS (25 MCG) TAB PO SCH (08:08)
[2024-07-01] MEDS: Folic Acid 1 MG TAB PO SCH (08:08)
[2024-07-01] MEDS: Aspirin 81 mg Enteric Coated Tablet PO SCH (08:08)
[2024-07-01] MEDS: busPIRone HCl 5 MG TAB PO SCH ×2 (08:39→14:36)
[2024-07-01] MEDS ORDERED: INSULIN PUMP SC SCH (09:00)
[2024-07-01] MEDS: Enoxaparin 30 MG (0.3 mL) SYRINGE SC SCH (09:55)
[2024-07-01] MEDS: dilTIAZem CD 240 MG CAP PO SCH (09:55)
[2024-07-01] MEDS ORDERED: Labetalol HCl 100 MG/20 ML VIAL SLOW IVP PRN (13:15)
[2024-07-01] MEDS: hydrALAZINE 25 MG TAB PO SCH (14:35)
[2024-07-01] MEDS: Potassium Chloride 20 MEQ TAB PO SCH (14:35)
[2024-07-02 04:11] LABS: #Basophils Less than 0.03 10x3/uL (0.0-0.2); #Eosinophils Less than 0.03 10x3/uL (0.0-0.7); %Basophils 0.1 % (0.0-1.0); %Monocytes 5.8 % (0.0-10.0); %Neutrophils 89.6 % (42.0-75.0); Hematocrit 30.4 % (36.0-47.0); Mean Corpuscular HGB CONC 32.9 g/dL (32.0-36.0); Mean Corpuscular Hemoglobin 27.2 pg (27.0-31.0); Mean Corpuscular Volume 82.8 fL (78.0-98.0); Platelet Count 270 10x3/uL (130-400); RBC Distribution Width 15.5 % (11.5-14.5); Red Blood Cell (RBC) Count 3.67 mill/uL (4.20-5.40)
[2024-07-02 04:37] LABS: Anion Gap 18 mmol/L (10-20); BUN (Urea Nitrogen) 67 mg/dL (9.8-20.1); Calc. Creatinine Clearance 19 mL/min (70-130); Calcium 9.4 mg/dL (7.8-10.44); Carbon Dioxide 20 mmol/L (23-31); Chloride 102 mmol/L (98-107); Estimated GFR 13; Glucose 358 mg/dL (83-110); Potassium 3.6 mmol/L (3.5-5.1); Sodium 136 mmol/L (136-145)
[2024-07-02] MEDS: Insulin Glargine 30 UNITS/0.3 ML VIAL SC SCH ×2 (11:23→21:07)
[2024-07-02] MEDS: NIFEdipine XL 30 MG ER.TAB PO SCH (11:24)
[2024-07-02] MEDS: Insulin Lispro 100 UNIT/ML 10 ML VIAL SC PRN (12:15)
[2024-07-02] MEDS: Guaifenesin DM 100-10/5 ML UDCUP PO PRN (21:06)
[2024-07-03 05:21] LABS: Anion Gap 18 mmol/L (10-20); BUN (Urea Nitrogen) 84 mg/dL (9.8-20.1); Calc. Creatinine Clearance 16 mL/min (70-130); Calcium 9.3 mg/dL (7.8-10.44); Carbon Dioxide 21 mmol/L (23-31); Chloride 101 mmol/L (98-107); Estimated GFR 11; Glucose 212 mg/dL (83-110); Potassium 3.8 mmol/L (3.5-5.1); Sodium 136 mmol/L (136-145)
[2024-07-03 05:30] LABS: Hemoglobin A1c 7.7 % (4.0-6.0)
[2024-07-03 05:57] LABS: Hematocrit 29.2 % (36.0-47.0); Hemoglobin 9.5 g/dL (12.0-16.0); Mean Corpuscular HGB CONC 32.5 g/dL (32.0-36.0); Mean Corpuscular Hemoglobin 26.9 pg (27.0-31.0); Mean Corpuscular Volume 82.7 fL (78.0-98.0); Platelet Count 245 10x3/uL (130-400); RBC Distribution Width 15.4 % (11.5-14.5); Red Blood Cell (RBC) Count 3.53 mill/uL (4.20-5.40)
[2024-07-03 07:36] LABS: Band 8 % (5-11); Eosinophils 3 % (0-10); Lymphocytes 7 % (21-51); Monocytes 4 % (0-10); Neutrophil 78 % (42-75); Platelet Adequacy Comment Platelets Normal; RBC Morphology Within Normal Limits
[2024-07-03] MEDS ORDERED: Insulin Glargine 30 UNITS/0.3 ML VIAL SC SCH (09:30)
[2024-07-03 09:48] LABS: Actual Bicarbonate (HCO3a) 22.8 mEq/L (22-28); Base Excess (BEa) -2.1 mEq/L (-2.0 to +3.0); CO2 Tension 39.4 mmHg (35.0-45.0); Calcium, Ionized (arterial) 1.25 mmol/L (1.12-1.30); Carboxyhemoglobin (COHb) 0.2 gm% (0.0-3.0); Hematocrit-ABG 31 % (36.0-47.0); Hemoglobin (Hb) 10.7 g/dL (12.0-16.0); O2 Tension (PaO2), arterial 61.9 mmHg (> 60.0); Potassium - ABG Lab 4.18 mmol/L (3.70-5.30)
[2024-07-03] MEDS: Furosemide 40 MG (4 mL) VIAL SLOW IVP SCH ×2 (10:02→20:14)
[2024-07-03 10:23] LABS: Anion Gap 16 mmol/L (10-20); BUN (Urea Nitrogen) 93 mg/dL (9.8-20.1); Calc. Creatinine Clearance 15 mL/min (70-130); Calcium 9.3 mg/dL (7.8-10.44); Carbon Dioxide 21 mmol/L (23-31); Chloride 102 mmol/L (98-107); Estimated GFR 10; Glucose 227 mg/dL (83-110); Potassium 4.2 mmol/L (3.5-5.1); Sodium 135 mmol/L (136-145); Troponin I 0.057 ng/mL (< 0.028)
[2024-07-03] MEDS: Furosemide 40 MG (4 mL) VIAL ONE (11:17)
[2024-07-03] MEDS: NIFEdipine XL 30 MG ER.TAB PO SCH (11:26)
[2024-07-03] MEDS: Pantoprazole DR 40 MG TAB PO SCH (11:26)
[2024-07-03] MEDS: Insulin Glargine 30 UNITS/0.3 ML VIAL SC SCH ×3 (11:29→20:15)
[2024-07-03 16:42] LABS: Bacteria/HPF 2+ HPF (None Seen); Bilirubin Negative (Negative); Blood, Urine Negative (Negative); Clarity Turbid (Clear); Glucose, Urine (Dipstick) Normal (Negative); Ketone, Urine Negative (Negative); Leukocyte Negative Leu/uL (Negative); Nitrite Negative (Negative); Protein, Urine (Dipstick) Negative (Neg-Trace); RBC/HPF 0-3 HPF (0-3); Specific Gravity, Urine 1.008 (1.002-1.036); Urobilinogen Normal mg/dL (Less than 2); WBC/HPF 0-3 HPF (0-3)
[2024-07-04 05:30] LABS: #Basophils 0.03 10x3/uL (0.0-0.2); %Basophils 0.3 % (0.0-1.0); %Eosinophils 0.3 % (0.0-10.0); %Lymphocytes 10.9 % (21.0-51.0); %Monocytes 8.4 % (0.0-10.0); %Neutrophils 76.1 % (42.0-75.0); Hematocrit 25.7 % (36.0-47.0); Hemoglobin 8.5 g/dL (12.0-16.0); Mean Corpuscular HGB CONC 33.1 g/dL (32.0-36.0); Mean Corpuscular Volume 81.6 fL (78.0-98.0); Mean Platelet Volume 11.5 fL (7.4-10.4); Platelet Count 243 10x3/uL (130-400); RBC Distribution Width 15.4 % (11.5-14.5); Red Blood Cell (RBC) Count 3.15 mill/uL (4.20-5.40)
[2024-07-04 06:06] LABS: Anion Gap 17 mmol/L (10-20); BUN (Urea Nitrogen) 103 mg/dL (9.8-20.1); Calc. Creatinine Clearance 13 mL/min (70-130); Calcium 9.1 mg/dL (7.8-10.44); Carbon Dioxide 20 mmol/L (23-31); Chloride 97 mmol/L (98-107); Estimated GFR 9; Glucose 291 mg/dL (83-110); Potassium 4.4 mmol/L (3.5-5.1); Sodium 130 mmol/L (136-145)
[2024-07-04 08:49] VITALS: TEMP 98
[2024-07-04] MEDS: Insulin Glargine 30 UNITS/0.3 ML VIAL SC SCH (09:12)
[2024-07-04] MEDS: Benzonatate 100 MG CAP PO PRN (09:20)
[2024-07-04] MEDS: Albumin 25% 25 GM (100 mL) BOT IVPB SCH (11:32)
[2024-07-04] MEDS: Calcium Carbonate 500 MG ChewTAB PO PRN (11:53)
[2024-07-04] MEDS: methylPREDNISolone Sod Succ 40 MG VIAL IVP SCH (11:54)
[2024-07-04] MEDS: guaiFENesin ER 600 MG TAB PO SCH ×2 (11:54→21:14)
[2024-07-04] MEDS: EPOETIN ALFA-EPBX (ESRD) 10,000 UNITS/ML VIAL SC SCH (11:54)
[2024-07-04] MEDS: Mag-Al 1200 mg/1200 mg/30 ML UDCUP PO PRN (12:12)
[2024-07-04 13:52] VITALS: BMI 38.4
[2024-07-04] MEDS: Lidocaine 2% Viscous Solution 10 ML, Aluminum & Magnesium Hydroxide 30 ML SSW SCH (14:32)
[2024-07-04] MEDS: Cefepime 1 GM in Sodium Chloride 0.9% 100 ML IVPB SCH (17:20)
[2024-07-04] MEDS: Magnesium Citrate 300 ML BOT PO SCH (17:20)
[2024-07-04] MEDS: HYDROcodone/Acetaminophen 5/325 mg Tablet PO PRN (17:27)
[2024-07-04] MEDS ORDERED: Sodium Chloride 0.9% 1,000 ML IV SCH (19:00)
[2024-07-04] MEDS ORDERED: Calcium Chloride 1 GM/10 ML Abboject SYRINGE ONE (19:19)
[2024-07-04] MEDS ORDERED: EPINEPHrine 1 MG/10 ML Abboject SYRINGE ONE (19:19)
[2024-07-04] MEDS ORDERED: Amiodarone 150 MG/3 ML VIAL ONE (19:19)
[2024-07-04] MEDS ORDERED: Sodium Bicarb 50 MEQ/50 ML Abboject 8.4% SYRINGE ONE (19:19)
[2024-07-04] MEDS ORDERED: Dextrose 50% Abboject 50 ML SYRINGE ONE (19:19)
[2024-07-04 20:14] LABS: CRP,High Sensitivity (Inhouse) 8.93 mg/dL (< or = 0.5)
[2024-07-04 20:21] VITALS: BP 101/47
[2024-07-04] MEDS ORDERED: methylPREDNISolone Sod Succ 40 MG VIAL IVP SCH (21:00)
[2024-07-04] MEDS ORDERED: QUEtiapine 25 MG TAB PO SCH (21:00)
[2024-07-04] MEDS: Pantoprazole 40 MG VIAL IVP SCH (21:15)
== END 2024-07-04 19:49 | disposition expired ==
LOC: ERS 11:22 → CCU 14:38 → T4-B 07-02 10:10 → IMCU/EMU 07-03 10:35 → T4-B 07-03 11:53
PROVIDERS: ADMIT Hospitalist; ATTEND Family Medicine
PROC: 4A033R1 Measurement of Arterial Saturation, Peripheral, Percutaneous Approach (ICD-10-PCS; 2024-07-03)
PROC: 5A12012 Performance of Cardiac Output, Single, Manual (ICD-10-PCS; principal; 2024-07-04)
PROC: 30233J1 Transfusion of Nonautologous Serum Albumin into Peripheral Vein, Percutaneous Approach (ICD-10-PCS; 2024-07-04)
PROC: 3E033XZ Introduction of Vasopressor into Peripheral Vein, Percutaneous Approach (ICD-10-PCS; 2024-07-04)
PROC: 3E03329 Introduction of Other Anti-infective into Peripheral Vein, Percutaneous Approach (ICD-10-PCS; 2024-07-04)
DX: I16.1 Hypertensive emergency (principal); G92.9 Unspecified toxic encephalopathy; I21.A1 Myocardial infarction type 2; J18.9 Pneumonia, unspecified organism; N17.9 Acute kidney failure, unspecified; J96.11 Chronic respiratory failure with hypoxia; N18.5 Chronic kidney disease, stage 5; J44.0 Chronic obstructive pulmonary disease with (acute) lower respiratory infection; I25.10 Atherosclerotic heart disease of native coronary artery without angina pectoris; F41.9 Anxiety disorder, unspecified; F17.210 Nicotine dependence, cigarettes, uncomplicated; R79.89 Other specified abnormal findings of blood chemistry; I13.2 Hypertensive heart and chronic kidney disease with heart failure and with stage 5 chronic kidney disease, or end stage renal disease; I50.9 Heart failure, unspecified; Z88.0 Allergy status to penicillin; Z88.8 Allergy status to other drugs, medicaments and biological substances; Z95.818 Presence of other cardiac implants and grafts; Z98.890 Other specified postprocedural states; Z90.710 Acquired absence of both cervix and uterus; E87.6 Hypokalemia; E11.65 Type 2 diabetes mellitus with hyperglycemia; E11.22 Type 2 diabetes mellitus with diabetic chronic kidney disease; E11.40 Type 2 diabetes mellitus with diabetic neuropathy, unspecified; Z90.5 Acquired absence of kidney; D63.8 Anemia in other chronic diseases classified elsewhere; K21.9 Gastro-esophageal reflux disease without esophagitis; Z79.4 Long term (current) use of insulin; Z96.641 Presence of right artificial hip joint; E86.0 Dehydration; H60.509 Unspecified acute noninfective otitis externa, unspecified ear; Z99.81 Dependence on supplemental oxygen; E78.5 Hyperlipidemia, unspecified; I35.0 Nonrheumatic aortic (valve) stenosis
CPT/HCPCS: 36415; 36416; 70450; 71045; 74018; 80048; 80053; 81001; 82805; 83036; 83690; 83735; 83880; 84484; 85025; 86141; 93005; 93010; 93306; 94640; 96374; 96375; J0171; J0282; J0692; J1644; J1650; J1815; J1940; J2405; J2550; J2919; J3490; J7050; J7620; J7999; P9047; Q5105